=== PATIENT | male | born 1950 | race Caucasian/White ===

== ENCOUNTER 2017-01-07 14:48 | Outpatient (CLI) | payer BC ==
--- NOTE | 2017-01-07 15:38 | Diagnostic Imaging Report ---
Indication: COUGH Technique: 2 views of the chest Comparison: none Findings: The lungs are hyperinflated. There is a right chest port catheter. The lungs pleural spaces are clear. Heart size is normal. Aorta is tortuous and calcified. There are degenerative changes of the thoracic spine. Surgical clips are seen in the epigastric region Impression: COPD changes No acute process Right chest port catheter, degenerative spondylosis, prior abdominal postsurgical changes incidentally noted
== END 2017-01-07 16:48 | disposition home or self-care (01) ==
LOC: RAD 14:48
DX: R05 Cough (principal); M47.9 Spondylosis, unspecified; J18.9 Pneumonia, unspecified organism
CPT/HCPCS: 71020